=== PATIENT | female | born 1980 | race Caucasian/White ===

== ENCOUNTER 2020-09-04 09:06 | Emergency (ER) | payer BC, SELFPAY ==
--- NOTE | 2020-09-04 09:03 | ECG_ITS ---
APPROVED REPORT Exam: Resting ECG HR:81 bpm ECG Measurements Heart Rate 81 AXES VT 144 P 48 QRSd 102 QRS 62 QT 372 T 48 QTc 432 Conclusion Normal sinus rhythm Incomplete right bundle branch block Borderline ECG Electronically signed by : Parviz Stacy, 09/04/2020 15:57:56
[2020-09-04 09:07] VITALS: BP 164/108; BP 166/108; PULSE 82; RESP 18; RESP 20; TEMP 36.7; O2SAT 97; O2SAT 99; BMI 23.9
--- NOTE | 2020-09-04 09:11 | XR_ITS ---
PROCEDURE: XR CHEST PORTABLE CLINICAL HISTORY: cough COMPARISON: No exams were available for comparison FINDINGS: The cardiomediastinal silhouette and pulmonary vascularity are within normal limits. The lungs are clear without infiltrates, suspicious nodules, or pleural effusions. No acute bony abnormalities. IMPRESSION: No acute findings. Dictated by: Juan Farnsworth MD 09/04/2020 10:14 Juan Farnsworth MD in [facility] 09/04/2020 10:14
--- NOTE | 2020-09-04 09:12 | CT_ITS ---
PROCEDURE: CT HEAD/BRAIN WO CON CLINICAL INDICATION: AMS Altered mental status, altered level of consciousness, confusion, disorientation, near syncope, difficulty with speech COMPARISON: No exams were available for comparison TECHNIQUE: Axial images obtained. All CT scans at the facility use one or more dose reduction, viz: automated exposure control, ma/kV adjustment per patient size (including targeted exams where dose is matched to indication, i.e. head), or iterative reconstruction technique. FINDINGS: No midline shift, mass effect, intracranial hemorrhage, hydrocephalus, or extra-axial fluid collection is evident. Are some subtle low-density changes in the left frontal parietal junction within the white matter.. No mastoid effusion or sinus air-fluid level.. IMPRESSION: Subtle low-density changes within the white matter of the left frontal parietal junction. Acute or subacute infarction is considered. MRI with diffusion imaging may provide further evaluation if clinically warranted.. Dictated by: Juan Farnsworth MD 09/04/2020 10:10 Juan Farnsworth MD in [facility] 09/04/2020 10:10
[2020-09-04 09:20] VITALS: BMI 23.9
[2020-09-04 09:20] LABS: Microscopic, Urine URINE MICROSCOPIC (MICROSCOPIC)
[2020-09-04 09:21] LABS: Appearance,Urine CLEAR (Clear); Bilirubin,Urine Negative (Negative); Blood, Urine Negative (Negative); Color,Urine YELLOW (Yellow); Glucose,Urine (UA) Negative (Negative); Ketones,Urine Negative (Negative); Leukocyte Esterase,Urine Negative (Negative); Nitrate,Urine Negative (Negative); Protein,Urine Negative (Negative); Urobilinogen,Urine 0.2 EU/dl (0.2)
[2020-09-04 09:27] LABS: Basophils # 0.1 K/mm3 (0-0.2); Eosinophils # 0.2 K/mm3 (0.0-0.4); Eosinophils % 2.3 % (0.1-12.0); Hemoglobin 14.4 g/dL (12.2-16.2); Lymphocytes # 2.9 K/mm3 (0.7-4.5); Lymphocytes % 29.1 % (10-50); Mean Corpuscular HGB Conc 32.7 g/dL (31.8-35.4); Mean Corpuscular Hemoglobin 30.7 pg (27.0-31.2); Mean Platelet Volume 7.5 fl (7.4-10.4); Monocytes # 0.7 K/mm3 (0.1-1.0); Monocytes % 6.7 % (1.7-9.3); Neutrophils # 6.1 K/mm3 (1.8-7.8); Platelet Count 343 K/mm3 (142-424); Red Blood Count 4.68 M/mm3 (4.20-5.40); Red Cell Distribution Width 12.8 % (11.5-17.5)
[2020-09-04 09:32] LABS: Chloride 108 mmol/L (98-107); Potassium 4.1 mmoL/L (3.5-5.1); Sodium 139 mmol/L (136-145)
--- NOTE | 2020-09-04 09:33 | [facility].EDDIZZ ---
ED Disposition Clinical Impression: Generalized weakness Hypertension Qualifiers: Hypertension type: essential hypertension Qualified Code(s): I10 - Essential (primary) hypertension Disposition: Home, Self-Care Condition on Discharge: Good Instructions: Dizziness, Nonvertigo Referrals: PCP,Selena [Primary Care Provider] - Robyn Malik MD [Staff Physician] - - Critical Care Critical Care Time: No Attestation: On 09/04/20, the high probability of a clinically significant, sudden or life threatening deterioration of the following system(s) required my full and direct attention, intervention and personal management. The time I documented below is in addition to time spent performing reported procedures but includes the following listed in this critical care notation. Medical Decision Making - Medical Records Medical records reviewed: Yes: I reviewed the patient's medical records. - Brian Inquiry Pt receiving controlled substance: No Vital Signs: 09/04/20 09:07 09/04/20 09:37 09/04/20 10:41 Temperature 98.0 F Temperature Source Oral Pulse Rate [Left Radial] 82 82 84 Respiratory Rate 18 18 20 Blood Pressure [Right Arm] 164/108 H 163/110 H 159/92 H Blood Pressure Mean [Right Arm] 126 127 114 Blood Pressure Source [Right Arm] Automatic Cuff Automatic Cuff Blood Pressure Position [Right Arm] Sitting Supine 02 Sat by Pulse Oximetry 97 99 98 Oxygen Delivery Method Room Air Room Air 09/04/20 11:45 Temperature Temperature Source Pulse Rate [Left Radial] 75 Respiratory Rate 20 Blood Pressure [Right Arm] 136/87 Blood Pressure Mean [Right Arm] 103 Blood Pressure Source [Right Arm] Blood Pressure Position [Right Arm] 02 Sat by Pulse Oximetry 97 Oxygen Delivery Method - Lab Data Lab Results 09/04/20 09:00: WBC 10.0, RBC 4.68, Hgb 14.4, Hct 44.0, MCV 94.0, MCH 30.7, MCHC 32.7, RDW 12.8, Plt Count 343, MPV 7.5, Neut % (Auto) 61.0, Lymph % (Auto) 29.1, [place] % (Auto) 6.7, Eos % (Auto) 2.3, Baso % (Auto) 1.0, Neut # (Auto) 6.1, Lymph # (Auto) 2.9, [place] # (Auto) 0.7, Eos # (Auto) 0.2, Baso # (Auto) 0.1 09/04/20 09:00: Sodium 139, Potassium 4.1, Chloride 108 H, Carbon Dioxide 22, Anion Gap 13.1, BUN 13, Creatinine 0.60, Estimated Creat Clear 120, Estimated GFR 111, Est GFR ( Amer) 134, Glucose 98, Calcium 10.0, Total Bilirubin 0.5, AST 35, ALT 25, Alkaline Phosphatase 73, Troponin I < 0.01, Total Protein 8.6 H, Albumin 5.2 H, Globulin 3.4 H, Albumin/Globulin Ratio 1.5, Lipase 399 H 09/04/20 09:00: Plasma/Serum Alcohol < 10 09/04/20 09:10: Urine Color Yellow, Urine Appearance Clear, Urine pH 6.0, Ur Specific [place] 1.020, Urine Protein Negative, Urine Glucose (UA) Negative, Urine Ketones Negative, Urine Blood Negative, Urine Nitrate Negative, Urine Bilirubin Negative, Urine Urobilinogen 0.2, Ur Leukocyte Esterase Negative, Urine WBC 3-5, Ur Squamous Epith Cells 5-10 09/04/20 09:10: Urine Opiates Screen Negative, Urine Methadone Screen Negative, Ur Barbituates Screen Negative, Ur Phencyclidine Scrn Negative, Ur Amphetamines Screen Negative, U Benzodiazepines Scrn Negative, Urine Cocaine Screen Negative, U Marijuana (THC) Screen Negative Result diagrams: 09/04/20 09:00 09/04/20 09:00 Orders (Tests/Meds): ED MEDICATIONS Discontinued Medications Generic Name Dose Route Start Last Admin Trade Name Freq PRN Reason Stop Dose Admin Sodium Chloride 1,000 mls @ 999 mls/hr 09/04/20 09:15 09/04/20 09:22 Sod Chlor 0.9% 1000ml Bag IV 09/04/20 10:15 999 mls/hr .Q1H1M [place] Administration Ondansetron HCl 4 mg 09/04/20 10:15 09/04/20 10:15 Ondansetron 4mg/2ml Vial IV 09/04/20 10:16 4 mg ONCE ONE Administration - Radiology Data #1 Image(s): Chest Image Reviewed: Yes I reviewed the patient's radiology results, Yes I discussed the image results w/the radiologist Preliminary Findings: Normal/NAD #2 Image(s): Other (MRI Brain) Image Reviewed: Yes I reviewed the patient'
[2020-09-04 09:35] LABS: Alanine Aminotransferase 25 U/L (12-78); Albumin Level 5.2 g/dl (3.5-5.0); Albumin/Globulin Ratio 1.5 (1.1-1.8); Alkaline Phosphatase 73 U/L (38-126); Anion Gap 13.1 mEq/L (5-15); Aspartate Amino Transferase 35 U/L (14-36); Bilirubin,Total 0.5 mg/dl (0.2-1.3); Blood Urea Nitrogen 13 mg/dl (7-17); Carbon Dioxide 22 mmol/L (22.0-30.0); Creatinine Clearance Estimated 120 mL/min (50-200); Estimated Glomerular Filt Rate 111 ml/min (>60); GFR (African American) 134 ML/MIN (>60); Globulin 3.4 g/dL (1.3-3.2); Glucose 98 mg/dl (74-100); Lipase 399 U/L (23-300); Total Protein,Serum 8.6 g/dl (6.3-8.2)
[2020-09-04 09:37] VITALS: BP 163/110; PULSE 82; RESP 18; O2SAT 99
[2020-09-04 09:40] LABS: Ethyl Alcohol < 10 mg/dl (0-10)
[2020-09-04 09:49] LABS: Troponin I < 0.01 ng/ml (0.00-0.034)
--- NOTE | 2020-09-04 10:16 | PC.NURSE ---
PT C/O OF BEING NAUSEATED ZOFRAN GIVEN
[2020-09-04 10:41] VITALS: BP 159/92; PULSE 84; RESP 20; O2SAT 98
--- NOTE | 2020-09-04 11:43 | MR_ITS ---
PROCEDURE: MR HEAD/BRAIN WO CON CLINICAL INDICATION: AMS Altered mental status, altered level of consciousness, confusion, disorientation, near syncope, abnormal head CT with possible infarction in the left frontal lobe. COMPARISON: CT CT HEAD/BRAIN WO CON from 09/04/2020 TECHNIQUE: Routine multiplanar multi echo sequences are performed without gadolinium enhancement. FINDINGS: No midline shift or mass effect is evident. No evidence of acute infarction. No restricted diffusion. There are T2 white matter hyperintensities present which are most prominent in the left frontal parietal junction accounting for the CT abnormality. These areas however do not demonstrate any restricted diffusion and are not consistent with acute or subacute areas of infarction. The cerebellopontine angles, cerebellum, midbrain and brainstem have an unremarkable appearance. The hippocampal gyri and temporal horns have an unremarkable appearance. The pituitary, optic chiasm, corpus callosum, and craniocervical junction appear unremarkable. No mastoid effusion or sinus air-fluid level. IMPRESSION: 1. No acute intracranial findings. 2. There are periventricular and subcortical T2 white matter hyperintensities in the the frontal and parietal lobes. This is most prominent in the left frontal parietal junction and accounts for the abnormality noted on the CT scan. This however does not appear to represent an area of acute or subacute infarction. The T2 white matter hyperintensities may be due to ischemic gliotic change from microvascular disease. The patient is somewhat younger than expected for that entity. Is there history of diabetes, hypertension, or smoking? Differential diagnosis includes migraine headache or demyelinating process. Dictated by: Juan Farnsworth MD 09/04/2020 12:52 Juan Farnsworth MD in [facility] 09/04/2020 12:52
[2020-09-04 11:45] VITALS: BP 136/87; PULSE 75; RESP 20; O2SAT 97
--- NOTE | 2020-09-04 12:01 | PC.NURSE ---
PT GOING TO MRI
[2020-09-04 12:04] LABS: Amphetamine/Metha Screen,Urine Negative ng/ml (<1000)
[2020-09-04 12:05] LABS: Barbiturates Screen,Urine Negative ng/ml (<200); Benzodiazepines Screen,Urine Negative ng/ml (<200)
[2020-09-04 12:06] LABS: Cocaine Screen,Urine Negative ng/ml (<300)
[2020-09-04 12:07] LABS: Cannabinoid Screen,Urine Negative ng/ml (<50); Methadone Screen,Urine Negative ng/ml (<300)
[2020-09-04 12:12] LABS: Opiate Screen,Urine Negative ng/ml (<300)
[2020-09-04 12:13] LABS: Phencyclidine Screen,Urine Negative ng/ml (<25)
[2020-09-04 14:40] VITALS: BP 155/93; PULSE 103; RESP 18; TEMP 36.6; O2SAT 98
== END 2020-09-04 14:42 | disposition home or self-care (01) ==
PROVIDERS: Emergency Provider Emergency Medicine
DX: R42 Dizziness and giddiness (principal); I10 Essential (primary) hypertension; G43.709 Chronic migraine without aura, not intractable, without status migrainosus
CPT/HCPCS: 70450; 70551; 71045; 80053; 80305; 81001; 83690; 84484; 85025; 93005; 96365; 96375; 99284; J2405

== ENCOUNTER → 2021-08-19 14:29 | Outpatient (CLI) | payer BC, SELFPAY | PROVIDERS: Visit Provider Nurse Practitioner | DX: Z20.822 Contact with and (suspected) exposure to COVID-19 (principal) | CPT/HCPCS: C9803; U0003; U0005 ==